=== PATIENT | female | born 1985 | race Two or more races ===

== ENCOUNTER 2020-05-04 16:00 | Emergency (ER) | payer MEDICAID ==
[~2020-05-04] VITALS: Ht 165.1 cm; Wt 127.0 kg
[2020-05-04 16:00] VITALS: BP_SYST 138
--- NOTE | 2020-05-04 16:00 | NUR ---
PT TRIAGED AND PLACED IN BED 3 FOR EVALUATION
--- NOTE | 2020-05-04 16:02 | NUR ---
PT ALERT, ORIENTED, AND AMBULATORY REPORT RIGHT LEG PAIN SINCE SUNDAY. PT REPORTS WORSENING PAIN AND WENT TO HER PRIMARY WHO SENT HER TO ER FOR R/O DVT. PT REPORTS CURRENT PAIN LEVEL 9/10.
--- NOTE | 2020-05-04 16:05 | NUR ---
DR. FLOREZ AT BEDSIDE TO EVALUATE PT STATUS
[2020-05-04] MEDS ORDERED: ALPRAZolam 0.25 MG TABLET PO ONE (16:15)
--- NOTE | 2020-05-04 16:25 | NUR ---
LAB AT BEDSIDE TO DRAW BLOOD
[2020-05-04 16:35] LABS: BASOPHILS # (AUTO) 0.1 K/uL (0.0-0.2); BASOPHILS % (AUTO) 1.1 % (0.0-2.0); EOSINOPHILS # (AUTO) 0.1 K/uL (0.0-0.4); EOSINOPHILS % (AUTO) 1.2 % (0.0-4.0); HEMATOCRIT 40.3 % (36-48); HEMOGLOBIN 14.1 g/dL (12.0-16.0); LYMPHOCYTES # (AUTO) 2.9 K/uL (1.0-5.5); LYMPHOCYTES % (AUTO) 27.7 % (20.5-51.5); MEAN CORPUSCULAR HEMOGLOBIN 33 pg (27-31); MEAN CORPUSCULAR HGB CONC 35 % (32-36); MEAN CORPUSCULAR VOLUME 93 fL (79.0-98.0); MONOCYTES # (AUTO) 0.5 K/uL (0.0-1.0); MONOCYTES % (AUTO) 4.4 % (1.7-9.3); NEUTROPHILS # (AUTO) 6.9 K/uL (1.8-7.7); NEUTROPHILS % (AUTO) 65.6 % (40.0-70.0); PLATELET COUNT (AUTO) 259 K/uL (130-430); RED BLOOD CELL COUNT(AUTO) 4.33 MIL/uL (4.2-6.2); RED CELL DISTRIBUTION WIDTH 13.9 % (9.0-15.0); WHITE BLOOD COUNT (AUTO) 10.5 K/uL (4.8-10.8)
--- NOTE | 2020-05-04 16:51 | NUR ---
Patient transported to radiology via WC, accompanied by STAFF.
[2020-05-04 17:00] LABS: CALCIUM 8.8 mg/dL (8.4-11.0); CREATININE 0.99 mg/dL (0.55-1.30); POTASSIUM 3.8 mmol/L (3.5-5.1)
[2020-05-04 17:04] LABS: ALBUMIN 3.6 g/dL (3.4-4.8); TOTAL BILIRUBIN 0.2 mg/dL (0.0-1.0)
[2020-05-04 17:28] VITALS: BP_SYST 138
--- NOTE | 2020-05-04 17:30 | NUR ---
Patient given written and verbal discharge instructions and verbalizes understanding. ER MD discussed with patient the results and treatment provided. Patient in stable condition. ID arm band removed. Rx of NORCO AND MOTRIN given. Patient educated on pain management and to follow up with PMD. Pain Scale 0/10. Opportunity for questions provided and answered. Medication side effect fact sheet provided.
== END 2020-05-04 17:28 | disposition home or self-care (01) ==
LOC: SED 16:00
DX: S86.911A Strain of unspecified muscle(s) and tendon(s) at lower leg level, right leg, initial encounter (principal); Z88.6 Allergy status to analgesic agent; X50.1XXA Overexertion from prolonged static or awkward postures, initial encounter; Y93.89 Activity, other specified; Y92.89 Other specified places as the place of occurrence of the external cause; Y99.8 Other external cause status
CPT/HCPCS: 36415; 80053; 81025; 84703; 85025; 85379; 85610-TC; 85730-TC; 93971; 99284

== ENCOUNTER 2020-06-17 09:55 | Emergency (ER) | payer MEDICAID, SELFPAY ==
[~2020-06-17] VITALS: Ht 165.1 cm; Wt 127.5 kg
[2020-06-17 09:55] VITALS: BP_SYST 132
--- NOTE | 2020-06-17 09:55 | NUR ---
PT TRIAGED OUTSIDE WITH 3 DAUGHTERS, WILL ASSUME CARE
--- NOTE | 2020-06-17 09:57 | NUR ---
PT STATES LOSS OF TASTE AND SMELL, FATIGUE, VOMITING AND DIARRHEA. LIVES WITH HER MOTHER THAT TESTED + FOR COVID, [facility] [employer] [facility].
--- NOTE | 2020-06-17 10:01 | NUR ---
DR MILLER OUTSIDE FOR EVALUATION
--- NOTE | 2020-06-17 10:22 | NUR ---
Patient given written and verbal discharge instructions and verbalizes understanding. ER MD discussed with patient the results and treatment provided. Patient in stable condition. ID arm band removed. Rx of NONE given. Patient educated on pain management and to follow up with PMD. Pain Scale 0/10. Opportunity for questions provided and answered. Medication side effect fact sheet provided.
== END 2020-06-17 10:22 | disposition home or self-care (01) ==
LOC: SED 09:55
DX: U07.1 COVID-19 (principal); B34.9 Viral infection, unspecified
CPT/HCPCS: 99283; C9803; U0003